=== PATIENT | female | born 1950 | race Caucasian/White ===

== ENCOUNTER → 2016-05-17 | Outpatient (CLI) | payer OTHER ==
--- NOTE | 2016-05-17 17:13 | MA ---
Screening Digital Mammogram With iCAD Analysis Clinical Indications: Routine screening. Her mother was diagnosed with breast cancer in her 70s. Technique: Standard cephalocaudal and mediolateral oblique projections were obtained. This examinatio n was processed by the iCAD computer aided detection system. Comparison: April 2015, April 2014, April 2013, March 2012, March 2011, March 2010, No vember 2008, January 2007. Breast density: Type B; Scattered fibroglandular densities. Findings: CAD was reviewed. No masses, suspicious calcifications or other signs of malignancy are id entified. There has been no significant change in the appearance of either breast. Impression: Negative mammogram. BI-RADS 1. Recommendation: Routine mammographic screening in one year. [facility] will send a result letter to the patient. Negative mammography should not preclude additional workup of a clinically suspicious finding. The patient's information is entered into a reminder system with a target due date for her next mammo gram.
== END ==
LOC: BRMIMAGING 10:49
DX: Z12.31 Encounter for screening mammogram for malignant neoplasm of breast (principal); Z80.3 Family history of malignant neoplasm of breast
CPT/HCPCS: G0202

== ENCOUNTER → 2017-05-27 | Outpatient (CLI) | payer OTHER | LOC: BRMIMAGING 13:39 | PROVIDERS: ATTEND Family Medicine | DX: Z12.31 Encounter for screening mammogram for malignant neoplasm of breast (principal); Z80.3 Family history of malignant neoplasm of breast ==

== ENCOUNTER 2018-04-04 10:08 | Day surgery (SDC) | payer OTHER ==
[2018-04-04] MEDS ORDERED: LR 1,000 ML IV ONE (10:33)
--- NOTE | 2018-04-04 11:37 | PDANEPAE ---
ANE History of Present Illness Colonoscopy ANE Past Medical History - Cardiovascular History Hx Hypertension: No Hx Arrhythmias: No Hx Chest Pain: No Hx Coronary Artery / Peripheral Vascular Disease: No Hx CHF / Valvular Disease: No Hx Palpitations: No Cardiovascular History Comment: HPL - Pulmonary History Hx COPD: No Hx Asthma/Reactive Airway Disease: No Hx Recent Upper Respiratory Infection: No Hx Oxygen in Use at Home: Yes O2 in Use at Home (L/minute): O2 2L NOC, 3 L with exercise Hx Sleep Apnea: No Sleep Apnea Screening Result - Last Documented: Negative Pulmonary History Comment: interstial lung disease. USES O2 NOC - Neurologic History Hx Cerebrovascular Accident: No Hx Seizures: No Hx Dementia: No - Endocrine History Hx Diabetes: No Hypothyroid: No Hyperthyroid: No Obesity: severe Endocrine History Comment: Hx of snoring - Renal History Hx Renal Disorders: Yes Renal History Comment: BLADDER CA - STARTED WKLY INTRAVESICULAR INFUSIONS - Liver History Hx Hepatic Disorders: No - Neurological & Psychiatric Hx Hx Neurological and Psychiatric Disorders: No - Cancer History Hx Cancer: No - Congenital Disorder History Hx Congenital Disorders: No - GI History GERD: moderate Hx Gastrointestinal Disorders: Yes Gastrointestinal History Comment: gastroperesis: unclear etiology. silent gerd - Other Health History Other Health History: none - Chronic Pain History Chronic Pain: No - Surgical History Prior Surgeries: ADDITIONAL TISSUE BLADDER REM. BLADDER TUMOR. L tka 2018 ANE Review of Systems Review of Systems: - Exercise capacity METS (RN): 4 METS (with supplemental O2) ANE Patient History - Allergies Allergies/Adverse Reactions: ibuprofen [From Advil] Allergy (Verified 12/11/17 16:05) Other-Enter Comments - Home Medications Home Medications: Calcium 500 + Vit D Caplet 12/11/17 [Last Taken 03/28/18] Claritin 12/11/17 [Last Taken 2 Weeks Ago ~03/21/18] Lipitor 12/11/17 [Last Taken 04/03/18] Ocuvite Adult 50 Plus Softgel 12/11/17 [Last Taken 04/03/18] Chardon-3 Fish Oil Softgel 12/11/17 [Last Taken 03/28/18] Chardon-3 Flaxseed Oil 12/11/17 [Last Taken 03/28/18] Omeprazole 12/11/17 [Last Taken 04/04/18 07:00] Ranitidine HCl 12/11/17 [Last Taken 04/03/18] Retaine Mgd Eye Drops 12/11/17 [Last Taken 04/04/18 07:00] Xiidra 12/11/17 [Last Taken 04/04/18 07:00] Bcg Live 04/04/18 [Last Taken 04/03/18] - NPO status NPO Since - Liquids (Date): 04/04/18 NPO Since - Liquids (Time): 04:00 NPO Since - Solids (Date): 04/03/18 NPO Since - Solids (Time): 09:00 - Anes Hx Anes Hx: post operative nausea - Smoking Hx Smoking Status: Former smoker - Alcohol Use Alcohol Use: Rarely - Family Anes Hx Family Anes Hx: none Family Hx Anesthesia Complications: none ANE Labs/Vital Signs - Vital Signs Blood Pressure: 143/72 Heart Rate: 64 Respiratory Rate: 18 O2 Sat (%): 95 Height: 167.64 cm Weight: 106.05 kg ANE Physical Exam - Airway Neck exam: FROM Mouth exam: normal dental/mouth exam - Pulmonary Pulmonary: clear to auscultation - Cardiovascular Cardiovascular: regular rate and rhythym ANE Anesthesia Plan Anesthesia Plan: GA with mask
[2018-04-04] MEDS ORDERED: PROPOFOL 200 MG/20 ML VIAL ONE ×2 (11:50→12:01)
--- NOTE | 2018-04-04 11:54 | PDGENHP ---
History & Physical Chief Complaint: h/o colon polyps History of Present Illness: bladder cancer. pulm dz Relevant Physical Exam: cv [id number] nl. chest CTA. Abd soft nt Cardiorespiratory Assessment: asa3
[2018-04-04] MEDS ORDERED: fentaNYL 100 MCG/2 ML INJ IVP PRN (12:11)
[2018-04-04] MEDS ORDERED: NALOXONE HCL 0.4 MG/ML INJ IVP PRN (12:11)
[2018-04-04] MEDS ORDERED: ONDANSETRON 4 MG/2 ML VIAL IVP PRN (12:11)
--- NOTE | 2018-04-04 12:17 | GIREPORT ---
[facility] Surgical Services - Endoscopy Department Patient Name: Norma Ann Procedure Date: 04/04/2018 11:35 AM Patient Type: Outpatient Attending / ER Physician: Kimberly Arreola MD Procedure: Colonoscopy Indications: High risk colon cancer surveillance: Personal history of colonic polyps Providers: Kimberly Arreola MD Medicines: Monitored Anesthesia Care Complications: No immediate complications. Description of Procedure: After obtaining informed consent, the scope was passed under direct vis ion. Throughout the procedure, the patient's blood pressure, pulse, and oxyg en saturations were monitored continuously. The Colonoscope with irrigatio n channel was introduced through the anus and advanced to the cecum, identified by appendiceal orifice and ileocecal valve. The colonoscopy was performed with difficulty due to looping. Successful completion of the procedure was aided by applying abdominal pressure and water insufflati on with gentle slow advancement. The patient tolerated the procedure well. The quality of the bowel preparation was good. The ileocecal valve, appendi ceal orifice, and rectum were photographed. Findings: The perianal and digital rectal examinations were normal. A few diverticula were found in the sigmoid colon. A 4 mm polyp was found in the ascending colon. The polyp was sessile. T he polyp was removed with a cold biopsy forceps. Resection and retrieval w ere complete. Estimated blood loss was minimal. A 5 mm polyp was found in the descending colon. The polyp was sessile. The polyp was removed with a cold biopsy forceps. Resection and retrieval w ere complete. Estimated blood loss was minimal. Estimated Blood Loss: Estimated blood loss was minimal. Post Op Diagnosis: - Diverticulosis in the sigmoid colon. - One 4 mm polyp in the ascending colon, removed with a cold biopsy for ceps. Resected and retrieved. - One 5 mm polyp in the descending colon, removed with a cold biopsy forceps. Resected and retrieved. Recommendation: - Await pathology results. - Patient has a contact number available for emergencies. The signs and symptoms of potential delayed complications were discussed with the pat ient. Return to normal activities tomorrow. Written discharge instructions we re provided to the patient. - High fiber diet. - Continue present medications. - Repeat colonoscopy in 5 years for surveillance. - Discharge patient to home. - Thank you for allowing me to participate in the care of your patient. Attending Participation: I personally performed the entire procedure. Kimberly Arreola MD Kimberly Arreola MD 04/04/2018 12:17:49 PM This report has been signed electronicallyKimberly Arreola MD Number of Addenda: 0 Note Initiated On: 04/04/2018 11:35 AM Total Procedure Duration Time 0 hours 15 minutes 12 seconds [email or web address]
[2018-04-04 13:04] VITALS: BP 99/62
== END 2018-04-04 13:40 | disposition home or self-care (01) ==
LOC: FSGY 10:08
PROVIDERS: ATTEND Internal Medicine Gastroenterology
DX: D12.2 Benign neoplasm of ascending colon (principal); D12.4 Benign neoplasm of descending colon; K57.31 Diverticulosis of large intestine without perforation or abscess with bleeding; J84.9 Interstitial pulmonary disease, unspecified; Z86.010 Personal history of colon polyps; C67.9 Malignant neoplasm of bladder, unspecified; Z85.51 Personal history of malignant neoplasm of bladder; Z87.891 Personal history of nicotine dependence
CPT/HCPCS: J2704

== ENCOUNTER → 2018-05-28 | Outpatient (CLI) | payer OTHER | LOC: BRMIMAGING 10:34 | PROVIDERS: ATTEND Family Medicine | DX: Z12.31 Encounter for screening mammogram for malignant neoplasm of breast (principal); Z80.3 Family history of malignant neoplasm of breast ==